=== PATIENT | male | born 1950 | race Caucasian/White ===

== ENCOUNTER → 2017-01-21 | Outpatient (CLI) | payer OTHER | LOC: MMPC 11:11 | PROVIDERS: ATTEND Surgery | DX: Z80.0 Family history of malignant neoplasm of digestive organs (principal) | CPT/HCPCS: 99212; G0463 ==

== ENCOUNTER 2017-02-10 09:47 | Day surgery (SDC) | payer OTHER ==
[~2017-02-10 09:47] MED LIST: LIDOCAINE W/ SODIUM BICARB 0.5 ML SYR ONE; Lactated Ringers 1,000 ML PRIMARY IV ONE
[2017-02-10 10:22] VITALS: RESP 16
--- NOTE | 2017-02-10 11:43 | GEN.OPNOTE ---
Colonoscopy Procedure Note Surgery Date: 02/10/17 Preoperative Diagnosis: Family history of colon cancer. Postoperative Diagnosis: Family history of colon cancer. Procedure: Complete colonoscopy and biopsy and destruction of a small polyp at the hepatic flexure. Surgeon: Wan Lopez MD Anesthesia Provider: Meenakshi Quintana CRNA Anesthesia Type: MAC Indications: Family history of colon cancer due for screening colonoscopy. Findings: Prep : [Excellent] Cecum : [Normal] Ascending : [Normal] Transverse : [Small polyp at the hepatic flexure resected with the cold biopsy forceps.] Sigmoid : [Normal] Rectum : [Normal] Digital Rectal Exam : [Normal. Slightly enlarged but nonnodular prostate.] A lubricated flexible colonoscope was inserted and passed to the blind end of the cecum. The ileocecal valve and appendiceal orifice and blind end of the cecum were all clearly seen. Air was aspirated as the scope was withdrawn. There is a small polyp at the hepatic flexure which was biopsied with the cold biopsy forceps and completely removed. Otherwise the entire colonoscopy was normal without other polyps, tumors, neoplastic masses, infectious or inflammatory process. The scope was withdrawn completing the procedure. Patient tolerated the procedure well without complication. He was taken to outpatient surgery in stable condition. Follow-up will be with my office on an as-needed basis. We will call the biopsy results when available and plan therapy and follow-up accordingly.
[2017-02-10 14:17] VITALS: TEMP 97.2
== END 2017-02-10 12:24 | disposition home or self-care (01) ==
LOC: SDSC 09:47
PROVIDERS: ATTEND Surgery
DX: Z80.0 Family history of malignant neoplasm of digestive organs (principal); K63.5 Polyp of colon; M25.551 Pain in right hip; M12.551 Traumatic arthropathy, right hip
CPT/HCPCS: 00810; 45380 ×2; 45388; 73502; 99214; G0463; J2704; J7120

== ENCOUNTER → 2017-02-10 | Outpatient (CLI) | payer OTHER ==
--- NOTE | 2017-02-10 14:37 | DI ---
AP PELVIS and RIGHT HIP, 02/10/2017 1:32 PM: Clinical History: Right hip pain. Previous Exam: None at this facility. There is no soft tissue abnormality. The bony structures of the pelvis are normal. 2 views of the rig ht hip show mild asphericity of the femoral head without a dysplastic "bump". There is no overt cover age of the acetabulum. Mild narrowing of the superior and lateral aspect of the joint space is presen t. Readin. There is mild narrowing of the superior and lateral portion of the right hip joint space. Mild as phericity of the right femoral head is also present. 2. The AP pelvis view is unremarkable.
== END ==
LOC: ORTHO 13:43
PROVIDERS: ATTEND Orthopaedic Surgery
DX: M25.551 Pain in right hip (principal)
CPT/HCPCS: 73502

== ENCOUNTER → 2017-02-11 | Outpatient (CLI) | payer OTHER ==
--- NOTE | 2017-02-13 09:53 | DI ---
MRI RIGHT HIP SCAN, 02/11/2017 12:51 PM: Clinical History: Right hip pain. Previous Exam: None at this facility. Technique: Axial fat saturated T2 weighted and oblique axial PD; coronal and sagittal PD and fat satu rated PD; anterior oblique coronal fat saturated PD. There is no soft tissue edema. A moderate to large joint effusion is present. There is increased sign al intensity in the superior and lateral aspect of the femoral head and extending inferiorly into the femoral neck and extending toward the lesser trochanter. This distribution is related to red marrow presence. Similar hyperintensities are present in the roof of the acetabulum and in the superior and inferior pubic rami. The amount of red marrow in these areas for this age group is increased and bell nversion of yellow marrow to red marrow may have occurred. Evaluation of this patient's peripheral sm ear and hemoglobin is recommended to be certain we are not dealing with anemia in this patient. In th e roof of the acetabulum, there is increased signal intensity greater than that of red marrow and thi s may represent a focus of bone edema. No definite fractures are identified. There is asphericity of the femoral head without evidence of a dysplastic "bump". The alpha angle is abnormal and is measured between 60 degrees and 68 degrees, depending on which image is used for that measurement. There is a tear that extends almost from the 12:00 position extending posteriorly into the posterior superior a nd posteroinferior quadrant and terminating near the 6:00 position. There is a section of labral tear involving the anteroinferior quadrant. The ligamentum teres has intermediate signal intensity and pr obably has a partial tear. There is thinning of the cartilaginous surfaces of the femoral head and ac etabulum but no defects are seen. Readin. Large joint effusion within an aspherical femoral head and an abnormal alpha angle of between 60- 68 degrees. There is a labral tear that extends from the 12:00 position posteriorly and inferiorly to the 6:00 position with an additional short segment tear in the anteroinferior quadrant. The cartilag inous surfaces of the femoral head and acetabulum are thin but intact. 2. Increased signal intensity is present in the femoral head and neck as well as the acetabulum and the superior and inferior pubic rami. These areas represent presence of red marrow, and at this age i t does appear to be increased and may represent reconversion of yellow marrow to red marrow. Evaluati on for anemia in this patient is recommended. 3. There is a focus of edema in the superior aspect of the acetabulum, but no fracture is identified .
== END ==
LOC: MRI 12:45
PROVIDERS: ATTEND Orthopaedic Surgery
DX: M25.551 Pain in right hip (principal); M25.451 Effusion, right hip; S73.191A Other sprain of right hip, initial encounter
CPT/HCPCS: 73721

== ENCOUNTER 2017-02-14 12:38 | Day surgery (SDC) | payer OTHER ==
[~2017-02-14 12:38] MED LIST changes: +BETAMET ACET/BETAMET NA PH 6 MG/1 ML - 5 ML ONE; +Iopamidol Inj 61% 50 ML VIAL ONE; +LIDOCAINE MPF 2% - 5 ML (20 MG/1 ML) ONE; -Lactated Ringers 1,000 ML PRIMARY IV ONE; +ROPIVACAINE HCL 7.5 MG/1 ML - 20 ML ONE
[2017-02-14 13:20] VITALS: RESP 17; TEMP 97.7
[2017-02-14 13:37] LABS: HEMATOCRIT 43.4 % (42.0-52.0); HEMOGLOBIN 15.6 g/dL (14.0-18.0); MEAN CORPUSCULAR HEMOGLOBIN 34.6 PG (27-31); MEAN CORPUSCULAR HGB CONC 35.9 g/dL (33-37); MEAN CORPUSCULAR VOLUME 96.2 FL (80-90); MEAN PLATELET VOLUME 8.9 FL (7.4-12.2); RED BLOOD COUNT 4.51 10^6/uL (4.70-6.10)
[2017-02-14 14:09] LABS: BAND NEUTROPHILS % 0 % (0-10); BASOPHILS % (MANUAL) 0 % (0-1); EOSINOPHILS % (MANUAL) 5 % (0-8); LYMPHOCYTES % (MANUAL) 39 % (10-50); METAMYELOCYTES % 0 %; MONOCYTES % (MANUAL) 1 % (0-12); MYELOCYTES % 0 %; NEUTROPHILS % (MANUAL) 55 % (50-80); PLATELET MORPHOLOGY COMMENT NORMAL MORPHOLOGY (NORM); PROMYELOCYTES % 0 %; RBC MORPHOLOGY COMMENT NORMAL MORPHOLOGY (NORM); WBC MORPHOLOGY COMMENT NORMAL MORPHOLOGY (NORM)
== END 2017-02-14 13:28 | disposition home or self-care (01) ==
LOC: SDSC 12:38
PROVIDERS: ATTEND Orthopaedic Surgery
DX: M65.88 Other synovitis and tenosynovitis, other site (principal)
CPT/HCPCS: 20610; 36415; 76000; 85007; J0702; J2001

== ENCOUNTER → 2017-04-07 | Outpatient (CLI) | payer OTHER | LOC: MMPC 11:11 | PROVIDERS: ATTEND Internal Medicine | DX: R06.83 Snoring (principal); M25.551 Pain in right hip; N52.9 Male erectile dysfunction, unspecified | CPT/HCPCS: 99214; G0463 ==

== ENCOUNTER → 2017-05-19 | Outpatient (CLI) | payer OTHER ==
--- NOTE | 2017-05-20 09:17 | DI ---
XR HIP COMPLETE MIN 2VW U/L,05/19/2017 1:36 PM: Clinical History: Right hip pain Previous Exam: February 10, 2017 Findings: 3 views of the right hip are obtained to include an AP view, and AP pelvis and a crosstable lateral v iew, and demonstrate anatomic alignment without fractures. Mild degenerative changes of the lumbar sp ine are seen. A nonobstructive bowel gas pattern is noted. There are no pathologic calcifications. Impression: Loss of joint space involving the weightbearing surface of the right hip consistent with osteoarthrit is. This is unchanged when compared with the examination from January.
== END ==
LOC: ORTHO 13:45
PROVIDERS: ATTEND Orthopaedic Surgery
DX: M25.551 Pain in right hip (principal); M16.11 Unilateral primary osteoarthritis, right hip
CPT/HCPCS: 73502

== ENCOUNTER → 2017-06-11 | Outpatient (CLI) | payer OTHER | LOC: SLEEP LAB 21:00 | PROVIDERS: ATTEND Family Medicine | DX: G47.33 Obstructive sleep apnea (adult) (pediatric) (principal); G47.34 Idiopathic sleep related nonobstructive alveolar hypoventilation | CPT/HCPCS: 95811 ==

== ENCOUNTER 2017-07-15 05:55 | Inpatient (IN) | payer OTHER ==
[2017-07-15] MEDS ORDERED: Lactated Ringers 1,000 ML PRIMARY IV ONE ×2 (06:01→11:58)
[2017-07-15] MEDS ORDERED: LIDOCAINE W/ SODIUM BICARB 0.5 ML SYR ONE (06:01)
[2017-07-15] MEDS ORDERED: ceFAZolin Inj 2gm (Premix) 50 ML IV ONE (06:01)
[2017-07-15] MEDS ORDERED: Sodium Chloride 0.9% 250 ML IV ONE (06:44)
[2017-07-15] MEDS ORDERED: ONDANSETRON 4 MG/2 ML VIAL IVP PRN ×2 (06:44→13:18)
[2017-07-15] MEDS ORDERED: Sodium Chloride 0.9% 2,000 ML ONE (06:44)
[2017-07-15] MEDS ORDERED: NORMAL SALINE 10 ML SYRINGE FLUSH IVP PRN ×2 (06:44→13:18)
[2017-07-15] MEDS ORDERED: fentaNYL Inj 100 MCG/2 ML VIAL IVP PRN (06:44)
[2017-07-15] MEDS ORDERED: ATROPINE SULFATE 0.4 MG/1 ML VIAL IVP PRN (06:44)
[2017-07-15] MEDS ORDERED: Ondansetron ODT Tab 8 MG TAB PO PRN ×2 (06:44→13:18)
[2017-07-15] MEDS ORDERED: Prochlorperazine Edisylate Inj 10mg/2ml vial IVP PRN (06:44)
[2017-07-15] MEDS ORDERED: Lactated Ringers 1,000 ML PRIMARY IV SCH (06:45)
[2017-07-15] MEDS ORDERED: Gentamicin Inj 40 MG/ML VIAL ONE (06:46)
[2017-07-15] MEDS ORDERED: HEPARIN 10,000 UNIT/1 ML ONE (06:46)
[2017-07-15] MEDS ORDERED: fentaNYL Inj 250 MCG/5 ML VIAL ONE ×2 (07:05→09:15)
[2017-07-15] MEDS ORDERED: MIDAZOLAM 5 MG/1 ML ONE (07:05)
[2017-07-15] MEDS ORDERED: KETAMINE 100 MG/1 ML - 5 ML ONE (07:05)
[2017-07-15] MEDS ORDERED: ROCURONIUM 10 MG/1 ML - 5 ML VIAL IVP ONE (07:07)
[2017-07-15] MEDS ORDERED: IPRATROPIUM/ALBUTEROL SULFATE 3 ML NEB NEB ONE (07:18)
[2017-07-15] MEDS ORDERED: IPRATROPIUM/ALBUTEROL SULFATE 3 ML NEB NEB PRN (07:28)
[2017-07-15] MEDS ORDERED: Ketorolac Inj 30 MG, Morphine Inj 5 MG, BUPivacaine Inj 0.25% PF 150 MG SPLASH ONE ×3 (07:30)
[2017-07-15] MEDS ORDERED: BUPivacaine Liposome/PF (Exparel) Inj 20ml vial INFIL ONE (07:47)
[2017-07-15] MEDS ORDERED: Sodium Chloride 0.9% vial 40 ML ONE (07:47)
[2017-07-15 07:48] LABS: BILIRUBIN,URINE NEGATIVE (NEG); CLARITY,URINE CLEAR (CLEAR); COLOR,URINE YELLOW; GLUCOSE, URINE (UA) NEGATIVE (NEG); NITRATE,URINE NEGATIVE (NEG); OCCULT BLOOD,URINE NEGATIVE (NEG); PH,URINE 5.5 (5.0-8.5); PROTEIN,URINE NEGATIVE (NEG); UROBILINOGEN,URINE 0.2 mg/dL (0.2)
[2017-07-15 07:53] LABS: RENAL EPITHELIAL CELLS,URINE RARE; URINE SAMPLE TYPE CATH SPECIMEN; WBC,URINE RARE
[2017-07-15 07:54] LABS: BACTERIA,URINE FEW
[2017-07-15] MEDS ORDERED: Sodium Chloride 0.9% 200 ML IV ONE (07:54)
[2017-07-15] MEDS ORDERED: TRANEXAMIC ACID 1,000 MG / 10 ML VIAL ONE (07:54)
[2017-07-15] MEDS ORDERED: ePHEDrine Inj 50 MG/ML AMP ONE (08:19)
[2017-07-15] MEDS ORDERED: Hetastarch 6% + NS 500 ML IV ONE (08:52)
[2017-07-15] MEDS ORDERED: Lactated Ringers 2,000 ML PRIMARY IV ONE (10:09)
[2017-07-15] MEDS ORDERED: DEXAMETHASONE PF 10 MG/1 ML VIAL ONE (10:11)
[2017-07-15] MEDS ORDERED: ONDANSETRON 4 MG/2 ML VIAL ONE (10:46)
--- NOTE | 2017-07-15 11:26 | CONSULT ---
Consult Note - Consult Reason for Consult: PostOp Consulation : Ortho (Left anterior hip) Primary Care Provider: Henri Delgadillo MD History and Physical - History of Present Illness History of Present Illness: This very nice 66-year-old gentleman who just underwent left anterior hip replacement patient is just out of surgery is awake and has no complaints Past Medical History Medical History: Elevated cholesterol, GERD Tobacco Use: Former Smoker Substance Use Type: None Medication / Allergies Home Medications: Home Medications Medication Instructions Recorded Confirmed Type Glucosa Machado 2Kcl/Chondroitin Machado 1 each PO DAILY 05/20/11 07/15/17 History [Glucosamine & Chondroitin Cap] Naproxen Sodium [Aleve] 220 mg PO Q6H PRN PRN 05/20/11 07/15/17 History Acetaminophen [Tylenol] 500 mg PO .PRN 06/10/11 07/15/17 History Tadalafil [Cialis] 1 tab PO DAILY PRN tab 03/11/14 07/15/17 History Aspirin/Acetaminophen/Caffeine 1 cap PO PRN tab 09/13/16 07/15/17 History [Excedrin Extra Strength Caplet] Pantoprazole Sodium [Protonix] 40 mg PO QD #90 tablet 12/13/16 07/15/17 Clinic Simvastatin 1 tab PO DAILY #90 tab 12/13/16 07/15/17 Clinic Ascorbic Acid [Vitamin C] 2 tab PO QD tab 02/10/17 07/15/17 History Calcium Carbonate [Calcium] 1 tab PO QD tab 02/10/17 07/15/17 History Sildenafil Citrate [Viagra] Sample #4 04/07/17 Clinic Vardenafil HCl [Levitra] Sample #4 04/07/17 Clinic Levocetirizine Dihydrochloride 5 mg PO DAILY #90 tab 04/30/17 07/15/17 Clinic [Xyzal] Sildenafil Citrate [Revatio] 1 tab PO QD PRN #30 tab 05/12/17 07/15/17 Clinic Hydrocodone/Acetaminophen 1 tab PO Q6-8H #60 tab 06/10/17 07/15/17 Clinic [Hydrocodon-Acetaminoph 7.5-325] Hydrocodone/Acetaminophen 1 - 2 tab PO Q4-6H #60 tab 07/03/17 07/15/17 Clinic [Hydrocodon-Acetaminoph 7.5-325] Promethazine HCl/Codeine 5 ml PO Q4-6HRSPRN #1 bottle 07/03/17 07/15/17 Clinic [Prometh-Codein 6.25-10 Mg/5 Ml] Allergies/Adverse Reactions: Allergies Allergy/AdvReac Type Severity Reaction Status Date / Time No Known Allergies Allergy Unverified 10/03/16 10:49 Exam - Vitals Vital Signs: Vital Signs Temperature 98.2 F Temperature Source Temporal Artery Scan Pulse Rate 58 Respiratory Rate 16 Blood Pressure 132/93 Oxygen Delivery Method Room Air Height 6 ft 1 in Weight 100.698 kg - General General Appearance: POSITIVE: No Acute Distress, Cooperative - Neck Neck Exam: POSITIVE: Normal Inspection - Respiratory Respiratory Exam: POSITIVE: Clear to Auscultation - Bilaterally, Breathing Non Labored, Normal To Percussion - Cardiovascular Cardiovascular Exam: POSITIVE: RRR, No Murmur, No Clicks - GI/Abdominal GI/Abdominal Exam: POSITIVE: Non Tender, Non Distended, Soft - Extremities Extremities Exam: POSITIVE: No Clubbing Present, No Edema Present, No Cyanosis Present Results - Labs CBC and BMP: 07/15/17 07:00 07/15/17 07:00 Labs - Last 24 Hours: Laboratory Results 07/15/17 07/15/17 Range/Units 07:00 07:40 Ur Collection Type Cath specimen Urine Color Yellow Urine Clarity Clear (CLEAR) Urine pH 5.5 (5.0-8.5) Ur Specific [place] 1.020 (1.005-1.030) Urine Protein Negative (NEG) mg/dl Urine Glucose (UA) Negative (NEG) mg/dL Urine Ketones Negative (NEG) Urine Occult Blood Negative (NEG) Urine Nitrate Negative (NEG) Urine Bilirubin Negative (NEG) Urine Urobilinogen 0.2 (0.2) mg/dL Ur Leukocyte Esterase Negative (NEG) Urine RBC 1-3 (NONE) /hpf Urine WBC Rare (NONE) Ur Squamous Epith Cells None (NONE) Ur Renal Epithelial Cell Rare (NONE) Urine Crystals None Urine Bacteria Few (NONE) Urine Casts None Urine Mucus Many (NONE) Urine Trichomonas None (NONE) Urine Yeast None (NONE) Blood Type A POSITIVE Antibody Screen Positive Antibody Identification Anti-M Assessment and Plan - Patient Problems (1) Hip replacement planned Current Visit: Yes Status: Acute Comment: Status post the first to orthopedic surgery for anticoagulation and PT OT orders check CBC CMP magnesium TSH (2) GERD (gastroesophageal reflux disease) Current Visit: Yes Status: Acute Comment: Continue PPI (3) Hypercholesteremia Current Visit: Yes Status: Acute Comment: Continue statin
[2017-07-15] MEDS: HYDROmorphone 2 MG/1 ML IVP PRN ×3 (11:33→11:52)
[2017-07-15] MEDS ORDERED: HYDROmorphone 2 MG/1 ML ONE (11:36)
[2017-07-15 11:38] LABS: BASOPHILS # (AUTO) 0.13 10*3/UL; BASOPHILS % (AUTO) 2.1 % (0-1); EOSINOPHILS # (AUTO) 0.45 10*3/UL; EOSINOPHILS % (AUTO) 7.4 % (0-8); HEMATOCRIT 39.2 % (42.0-52.0); HEMOGLOBIN 13.8 g/dL (14.0-18.0); LYMPHOCYTES # (AUTO) 1.34 10*3/uL; MEAN CORPUSCULAR HEMOGLOBIN 33.6 PG (27-31); MEAN CORPUSCULAR HGB CONC 35.2 g/dL (33-37); MEAN CORPUSCULAR VOLUME 95.4 FL (80-90); MEAN PLATELET VOLUME 9.9 FL (7.4-12.2); MONOCYTES # (AUTO) 0.68 10*3/UL (0.3-0.8); MONOCYTES % (AUTO) 11.1 % (5-15); NEUTROPHILS % (AUTO) 57.2 % (50-80); RED BLOOD COUNT 4.11 10^6/uL (4.70-6.10)
[2017-07-15 11:45] LABS: PLATELET MORPHOLOGY COMMENT NORMAL MORPHOLOGY (NORM); RBC MORPHOLOGY COMMENT NORMAL MORPHOLOGY (NORM); WBC MORPHOLOGY COMMENT NORMAL MORPHOLOGY (NORM)
[2017-07-15 11:48] LABS: BLOOD UREA NITROGEN 15 mg/dL (7-22); BUN/CREATININE RATIO 18.75 (6-20); CALCIUM 9.2 mg/dL (8.7-10.7); EST GLOMERULAR FILTRATION > 60 (>60 ml/min/1.73m(2)); MAGNESIUM 1.9 mg/dL (1.6-2.4); SERUM ALBUMIN 3.6 g/dL (3.5-4.8)
[2017-07-15] MEDS ORDERED: Sodium Chloride 0.9% 500 ML ONE (11:53)
--- NOTE | 2017-07-15 12:10 | DI ---
History: right hip osteoarthritis Findings: Intraoperative images demonstrate placement of the right hip hemiprosthesis. The femoral component is well seated. No acute fractures demonstrated Acetabular component is well seated Alignment is anatomic Impression Right hip hemiprosthesis in anatomic alignment
[2017-07-15] MEDS ORDERED: ACETAMINOPHEN 325 MG TABLET PO PRN (13:18)
[2017-07-15] MEDS ORDERED: MAG HYDROX/AL HYDROX/SIMETH 30 ML SUSP PO PRN (13:18)
[2017-07-15] MEDS ORDERED: BISACODYL 10 MG SUPPOSITORY RECTAL PRN (13:18)
[2017-07-15] MEDS ORDERED: ACETAMINOPHEN 500 MG TABLET PO SCH (13:18)
[2017-07-15] MEDS ORDERED: IBUPROFEN 400 MG TABLET PO PRN (13:18)
[2017-07-15] MEDS ORDERED: Prochlorperazine Tab 10 MG TAB PO PRN (13:18)
[2017-07-15] MEDS ORDERED: diphenhydrAMINE 25 MG CAPSULE PO PRN (13:18)
[2017-07-15] MEDS ORDERED: BISACODYL 5 MG TABLET PO PRN (13:18)
[2017-07-15] MEDS ORDERED: CALCIUM CARBONATE 500 MG (TUMS) CHEWABLE TABLET PO PRN (13:18)
[2017-07-15] MEDS ORDERED: TADALAFIL PO PRN (13:18)
[2017-07-15] MEDS ORDERED: HYDROmorphone 2 MG/1 ML IVP PRN (13:18)
--- NOTE | 2017-07-15 14:51 | ORTHO.PROG ---
Last Taken Vital Signs: Vital Signs - Last Taken Temperature 97.6 F 07/15/17 14:00 Pulse Rate 71 07/15/17 14:00 Respiratory Rate 18 07/15/17 14:00 Blood Pressure 130/66 07/15/17 14:00 Pulse Ox 96 07/15/17 14:00 Subjective: No pain and right hip after right total hip replacement Objective: Motor examination is intact as well as sensory exam dressings are in place. No significant swelling at the current time., Popliteal, adductor hiatus or thigh pain. Dressing is clean and dry and patient with good pulses brisk refill Intake and Output - 8hrs 07/14/17 07/15/17 07/15/17 07/15/17 21:59 05:59 13:59 21:59 Intake: IV 3000 300 Output: Output, Drainage Amount 35 Output, Urine Amount 150 Output, Estimated Blood 300 Loss Amount Other: Weight 100.698 kg Weight Measurement Method Standing Scale Laboratory Results 07/15/17 07/15/17 Range/Units 07:00 07:40 WBC 6.12 (4.8-10.8) 10^3/uL RBC 4.11 L (4.70-6.10) 10^6/uL Hgb 13.8 L (14.0-18.0) g/dL Hct 39.2 L (42.0-52.0) % MCV 95.4 H (80-90) FL MCH 33.6 H (27-31) PG MCHC 35.2 (33-37) g/dL RDW Std Deviation 41.8 (39-50) fL RDW Coeff of Elmer 12.3 (11.5-14.5) % Plt Count 411 H (140-350) 10*3/uL MPV 9.9 (7.4-12.2) FL Immature Gran % (Auto) 0.3 (0-5) % Neut % (Auto) 57.2 (50-80) % Lymph % (Auto) 21.9 (10-50) % [place] % (Auto) 11.1 (5-15) % Eos % (Auto) 7.4 (0-8) % Baso % (Auto) 2.1 H (0-1) % Immature Gran # (Auto) 0.02 10*3/UL Neut # (Auto) 3.50 10*3/UL Lymph # (Auto) 1.34 10*3/uL [place] # (Auto) 0.68 (0.3-0.8) 10*3/UL Eos # (Auto) 0.45 10*3/UL Baso # (Auto) 0.13 10*3/UL WBC Morphology Comment Normal morphology (NORM) Plt Morphology Comment Normal morphology (NORM) RBC Morph Comment Normal morphology (NORM) Sodium 136 (135-145) meq/L Potassium 4.3 (3.8-5.2) meq/L Chloride 107 (98-112) meq/L Carbon Dioxide 18 L (23-33) meq/L Anion Gap 11 (5-20) BUN 15 (7-22) mg/dL Creatinine 0.8 (0.70-1.50) mg/dL Estimated GFR > 60 (>60 ml/min/1.73m(2)) BUN/Creatinine Ratio 18.75 (6-20) Glucose 89 (78-110) mg/dL Calculated Osmolality 281.0 (267-292) mOsm/kg Calcium 9.2 (8.7-10.7) mg/dL Magnesium 1.9 (1.6-2.4) mg/dL Total Bilirubin 2.0 H (0.3-1.2) mg/dL AST 24 (21-57) IU/L ALT 19 L (21-72) IU/L Alkaline Phosphatase 82 (38-126) IU/L Total Protein 6.2 (6.1-8.0) g/dL Albumin 3.6 (3.5-4.8) g/dL Globulin 2.6 (2.50-4.10) g/dL Albumin/Globulin Ratio 1.30 (1.3-2.0) mg/g TSH 1.48 (0.2700-4.2000) uIU/mL Ur Collection Type Cath specimen Urine Color Yellow Urine Clarity Clear (CLEAR) Urine pH 5.5 (5.0-8.5) Ur Specific [place] 1.020 (1.005-1.030) Urine Protein Negative (NEG) mg/dl Urine Glucose (UA) Negative (NEG) mg/dL Urine Ketones Negative (NEG) Urine Occult Blood Negative (NEG) Urine Nitrate Negative (NEG) Urine Bilirubin Negative (NEG) Urine Urobilinogen 0.2 (0.2) mg/dL Ur Leukocyte Esterase Negative (NEG) Urine RBC 1-3 (NONE) /hpf Urine WBC Rare (NONE) Ur Squamous Epith Cells None (NONE) Ur Renal Epithelial Cell Rare (NONE) Urine Crystals None Urine Bacteria Few (NONE) Urine Casts None Urine Mucus Many (NONE) Urine Trichomonas None (NONE) Urine Yeast None (NONE) Blood Type A POSITIVE Antibody Screen Positive Antibody Identification Anti-M Assessment: Right anterior total hip replacement doing well Plan: Mobilize with physical therapy Pain control DVT prophylaxis with aspirin and pneumatics
--- NOTE | 2017-07-15 16:09 | DI ---
History postop right hip prosthesis No previous postoperative films available for comparison. Findings: Images demonstrate a right hip prosthesis. Femoral component is well seated. Acetabular component well seated. Alignment is anatomic. Impression Right hip prosthesis
[2017-07-15] MEDS: ceFAZolin Inj 2gm (Premix) 2 GM in Dextrose 1 BAG IV SCH (16:21)
[2017-07-15] MEDS ORDERED: Prometh/Codeine Liquid 10/6.25 MG/5 ML ORAL.SYRIN PO PRN (19:19)
[2017-07-15] MEDS: DOCUSATE 100 MG CAPSULE PO SCH (21:11)
[2017-07-15] MEDS: Simvastatin Tab 10 MG TAB PO SCH (21:30)
[2017-07-16] MEDS: ceFAZolin Inj 2gm (Premix) 2 GM in Dextrose 1 BAG IV SCH (00:47)
[2017-07-16 04:41] LABS: HEMATOCRIT 32.2 % (42.0-52.0); HEMOGLOBIN 11.2 g/dL (14.0-18.0); MEAN CORPUSCULAR HEMOGLOBIN 33.3 PG (27-31); MEAN CORPUSCULAR HGB CONC 34.8 g/dL (33-37); MEAN CORPUSCULAR VOLUME 95.8 FL (80-90); MEAN PLATELET VOLUME 9.4 FL (7.4-12.2); RED BLOOD COUNT 3.36 10^6/uL (4.70-6.10)
[2017-07-16 04:57] LABS: BLOOD UREA NITROGEN 12 mg/dL (7-22); BUN/CREATININE RATIO 17.14 (6-20); CALCIUM 8.7 mg/dL (8.7-10.7); EST GLOMERULAR FILTRATION > 60 (>60 ml/min/1.73m(2))
[2017-07-16] MEDS: Lactated Ringers 1,000 ML PRIMARY IV SCH (06:42)
--- NOTE | 2017-07-16 08:03 | ORTHO.PROG ---
Last Taken Vital Signs: Vital Signs - Last Taken Temperature 98.8 F 07/16/17 04:44 Pulse Rate 73 07/16/17 07:00 Respiratory Rate 20 07/16/17 04:44 Blood Pressure 137/70 07/16/17 04:44 Pulse Ox 96 07/16/17 04:44 Subjective: Patient notes to be doing well he notes it at a little bit of a bite a couple steps when going to the bathroom this morning otherwise is doing well. Objective: The leg is supple the dressing is in place with appropriate suction. The drain this morning with no fluid in it over the last 2 hours and had decreased previously when empty to 2 AM. Sensory exam is intact motor examination is intact Intake and Output - 8hrs 07/15/17 07/15/17 07/16/17 07/16/17 13:59 21:59 05:59 13:59 Intake: IV 3000 618 1000 Intake Oral Amount 600 800 Output: Output, Drainage Amount 35 140 120 Right Hip 140 120 Output, Urinary Catheter 250 1750 Amount Output, Urine Amount 150 Output, Estimated Blood 300 Loss Amount Other: Percent Meal Consumed 100% Weight 100.698 kg 102.965 kg Weight Measurement Method Standing Scale Standing Scale Abnormal Lab Results (Last 24 Hours) Range/Units 07/15/17 07/16/17 07:00 04:23 WBC (4.8-10.8) 10^3/uL 13.51 H RBC (4.70-6.10) 10^6/uL 4.11 L 3.36 L Hgb (14.0-18.0) g/dL 13.8 L 11.2 L Hct (42.0-52.0) % 39.2 L 32.2 L MCV (80-90) FL 95.4 H 95.8 H MCH (27-31) PG 33.6 H 33.3 H Plt Count (140-350) 10*3/uL 411 H Baso % (Auto) (0-1) % 2.1 H Sodium (135-145) meq/L 134 L Carbon Dioxide (23-33) meq/L 18 L Glucose (78-110) mg/dL 111 H Total Bilirubin (0.3-1.2) mg/dL 2.0 H ALT (21-72) IU/L 19 L Laboratory Results 07/15/17 07/15/17 07/16/17 Range/Units 07:00 07:40 04:23 WBC 6.12 13.51 H (4.8-10.8) 10^3/uL RBC 4.11 L 3.36 L (4.70-6.10) 10^6/uL Hgb 13.8 L 11.2 L (14.0-18.0) g/dL Hct 39.2 L 32.2 L (42.0-52.0) % MCV 95.4 H 95.8 H (80-90) FL MCH 33.6 H 33.3 H (27-31) PG MCHC 35.2 34.8 (33-37) g/dL RDW Std Deviation 41.8 40.5 (39-50) fL RDW Coeff of Elmer 12.3 12.0 (11.5-14.5) % Plt Count 411 H 315 (140-350) 10*3/uL MPV 9.9 9.4 (7.4-12.2) FL Immature Gran % (Auto) 0.3 (0-5) % Neut % (Auto) 57.2 (50-80) % Lymph % (Auto) 21.9 (10-50) % [place] % (Auto) 11.1 (5-15) % Eos % (Auto) 7.4 (0-8) % Baso % (Auto) 2.1 H (0-1) % Immature Gran # (Auto) 0.02 10*3/UL Neut # (Auto) 3.50 10*3/UL Lymph # (Auto) 1.34 10*3/uL [place] # (Auto) 0.68 (0.3-0.8) 10*3/UL Eos # (Auto) 0.45 10*3/UL Baso # (Auto) 0.13 10*3/UL WBC Morphology Comment Normal morphology (NORM) Plt Morphology Comment Normal morphology (NORM) RBC Morph Comment Normal morphology (NORM) Sodium 136 134 L (135-145) meq/L Potassium 4.3 4.1 (3.8-5.2) meq/L Chloride 107 106 (98-112) meq/L Carbon Dioxide 18 L 23 (23-33) meq/L Anion Gap 11 5 (5-20) BUN 15 12 (7-22) mg/dL Creatinine 0.8 0.7 (0.70-1.50) mg/dL Estimated GFR > 60 > 60 (>60 ml/min/1.73m(2)) BUN/Creatinine Ratio 18.75 17.14 (6-20) Glucose 89 111 H (78-110) mg/dL Calculated Osmolality 281.0 278.0 (267-292) mOsm/kg Calcium 9.2 8.7 (8.7-10.7) mg/dL Magnesium 1.9 (1.6-2.4) mg/dL Total Bilirubin 2.0 H (0.3-1.2) mg/dL AST 24 (21-57) IU/L ALT 19 L (21-72) IU/L Alkaline Phosphatase 82 (38-126) IU/L Total Protein 6.2 (6.1-8.0) g/dL Albumin 3.6 (3.5-4.8) g/dL Globulin 2.6 (2.50-4.10) g/dL Albumin/Globulin Ratio 1.30 (1.3-2.0) mg/g TSH 1.48 (0.2700-4.2000) uIU/mL Ur Collection Type Cath specimen Urine Color Yellow Urine Clarity Clear (CLEAR) Urine pH 5.5 (5.0-8.5) Ur Specific [place] 1.020 (1.005-1.030) Urine Protein Negative (NEG) mg/dl Urine Glucose (UA) Negative (NEG) mg/dL Urine Ketones Negative (NEG) Urine Occult Blood Negative (NEG) Urine Nitrate Negative (NEG) Urine Bilirubin Negative (NEG) Urine Urobilinogen 0.2 (0.2) mg/dL Ur Leukocyte Esterase Negative (NEG) Urine RBC 1-3 (NONE) /hpf Urine WBC Rare (NONE) Ur Squamous Epith Cells None (NONE) Ur Renal Epithelial Cell Rare (NONE) Urine Crystals None Urine Bacteria Few (NONE) Urine Casts None Urine Mucus Many (NONE) Urine Trichomonas None (NONE) Urine Yeast None (NONE) Blood Type A POSITIVE Antibody Screen Positive Antibody Identification Anti-M Vital Signs (24 hrs) Temp Pulse Pulse Resp BP Pulse Ox 07/16/17 07:00 73 07/16/17 04:44 98.8 F 67 20 137/70 96 07/16/17 00:47 98.5 F 85 20 111/65 95 07/15/17 20:50 98.1 F 98 20 113/68 95 07/15/17 16:13 97.8 F 84 18 144/79 96 07/15/17 16:00 96 07/15/17 15:24 97.2 F 70 17 132/61 98 07/15/17 14:00 97.6 F 71 18 130/66 96 07/15/17 13:30 96.8 F 67 18 137/68 97 07/15/17 13:20 97.6 F 79 79 17 139/66 95 07/15/17 13:15 97.6 F 68 17 150/82 97 Assessment: Right anterior total hip replacement doing well Plan: Continue icing the hip region. Mobilize with physical therapy and occupational therapy. Pain control with oral and IV medication as needed. Discontinue Santiago catheter.
[2017-07-16] MEDS ORDERED: [UNRECOGNIZED DRUG - OTHER] PO SCH (09:00)
--- NOTE | 2017-07-16 09:05 | CRNA.PROGR ---
Anesthesia Note Anesthesia Progress Note: Sitting up in chair at bedside eating breakfast. He states he's comfortable. No nausea. Santiago still in. His color and affect are bright. He and his and daughter are cheerful. Labs are good. No apparent anesthetic difficulties. Laboratory Results 07/15/17 07/15/17 07/16/17 Range/Units 07:00 07:40 04:23 WBC 6.12 13.51 H (4.8-10.8) 10^3/uL RBC 4.11 L 3.36 L (4.70-6.10) 10^6/uL Hgb 13.8 L 11.2 L (14.0-18.0) g/dL Hct 39.2 L 32.2 L (42.0-52.0) % MCV 95.4 H 95.8 H (80-90) FL MCH 33.6 H 33.3 H (27-31) PG MCHC 35.2 34.8 (33-37) g/dL RDW Std Deviation 41.8 40.5 (39-50) fL RDW Coeff of Elmer 12.3 12.0 (11.5-14.5) % Plt Count 411 H 315 (140-350) 10*3/uL MPV 9.9 9.4 (7.4-12.2) FL Immature Gran % (Auto) 0.3 (0-5) % Neut % (Auto) 57.2 (50-80) % Lymph % (Auto) 21.9 (10-50) % [place] % (Auto) 11.1 (5-15) % Eos % (Auto) 7.4 (0-8) % Baso % (Auto) 2.1 H (0-1) % Immature Gran # (Auto) 0.02 10*3/UL Neut # (Auto) 3.50 10*3/UL Lymph # (Auto) 1.34 10*3/uL [place] # (Auto) 0.68 (0.3-0.8) 10*3/UL Eos # (Auto) 0.45 10*3/UL Baso # (Auto) 0.13 10*3/UL WBC Morphology Comment Normal morphology (NORM) Plt Morphology Comment Normal morphology (NORM) RBC Morph Comment Normal morphology (NORM) Sodium 136 134 L (135-145) meq/L Potassium 4.3 4.1 (3.8-5.2) meq/L Chloride 107 106 (98-112) meq/L Carbon Dioxide 18 L 23 (23-33) meq/L Anion Gap 11 5 (5-20) BUN 15 12 (7-22) mg/dL Creatinine 0.8 0.7 (0.70-1.50) mg/dL Estimated GFR > 60 > 60 (>60 ml/min/1.73m(2)) BUN/Creatinine Ratio 18.75 17.14 (6-20) Glucose 89 111 H (78-110) mg/dL Calculated Osmolality 281.0 278.0 (267-292) mOsm/kg Calcium 9.2 8.7 (8.7-10.7) mg/dL Magnesium 1.9 (1.6-2.4) mg/dL Total Bilirubin 2.0 H (0.3-1.2) mg/dL AST 24 (21-57) IU/L ALT 19 L (21-72) IU/L Alkaline Phosphatase 82 (38-126) IU/L Total Protein 6.2 (6.1-8.0) g/dL Albumin 3.6 (3.5-4.8) g/dL Globulin 2.6 (2.50-4.10) g/dL Albumin/Globulin Ratio 1.30 (1.3-2.0) mg/g TSH 1.48 (0.2700-4.2000) uIU/mL Ur Collection Type Cath specimen Urine Color Yellow Urine Clarity Clear (CLEAR) Urine pH 5.5 (5.0-8.5) Ur Specific [place] 1.020 (1.005-1.030) Urine Protein Negative (NEG) mg/dl Urine Glucose (UA) Negative (NEG) mg/dL Urine Ketones Negative (NEG) Urine Occult Blood Negative (NEG) Urine Nitrate Negative (NEG) Urine Bilirubin Negative (NEG) Urine Urobilinogen 0.2 (0.2) mg/dL Ur Leukocyte Esterase Negative (NEG) Urine RBC 1-3 (NONE) /hpf Urine WBC Rare (NONE) Ur Squamous Epith Cells None (NONE) Ur Renal Epithelial Cell Rare (NONE) Urine Crystals None Urine Bacteria Few (NONE) Urine Casts None Urine Mucus Many (NONE) Urine Trichomonas None (NONE) Urine Yeast None (NONE) Blood Type A POSITIVE Antibody Screen Positive Antibody Identification Anti-M L. Mariano MS, [employer]
[2017-07-16] MEDS: PANTOPRAZOLE 40 MG TABLET PO SCH (09:27)
[2017-07-16] MEDS: LORATADINE 10 MG TABLET PO SCH (09:27)
[2017-07-16] MEDS: ASCORBIC ACID 500 MG TABLET PO SCH (09:27)
[2017-07-16] MEDS: CALCIUM CARBONATE 500 MG (TUMS) CHEWABLE TABLET PO SCH (09:27)
[2017-07-16] MEDS: DOCUSATE 100 MG CAPSULE PO SCH ×2 (09:27→21:30)
[2017-07-16] MEDS: ASPIRIN 325 MG EC TABLET PO SCH ×2 (09:28→21:30)
[2017-07-16] MEDS: HYDROcodone-APAP 7.5 MG-325 MG TABLET PO PRN ×2 (09:34→14:33)
--- NOTE | 2017-07-16 11:20 | PT.PROG ---
Progress Note Progress Note: S. Patient states that he is feeling good except when he tries to move too fast. then he has pain. His requested to do stair training while she was here this morning. He reported he feels good to be up and moving. O. Patient ambulated 175 feet to the therapy gym where he had heat and performed exercises in the form of; heel slides, quad sets, 4 way ankle (red), short arc quads, seated long arc quads, sit to stands all x 10, minute drills ( 2x1 minute). Patient ascended and descended 3 stairs with walker, then ambulated 175 feet back to his room where he was left in his chair with alarm and call light. A. Patient tolerated exercises well today, he was able to perform stair training fair, he required frequent verbal cues to remember how to perform tasks slowly and to follow hip protocols. Patient would continue to benefit from skilled therapy to increase strength and mobility at this time. P. Continue POC.
--- NOTE | 2017-07-16 11:21 | PDOC(PROG) ---
Interval History: Patient is doing great and has no complaints completed physical therapy Objective : Data - Labs CBC and BMP: 07/16/17 04:23 07/16/17 04:23 Labs - Last 24 Hours: Laboratory Results 07/15/17 07/16/17 Range/Units 07:00 04:23 WBC 6.12 13.51 H (4.8-10.8) 10^3/uL RBC 4.11 L 3.36 L (4.70-6.10) 10^6/uL Hgb 13.8 L 11.2 L (14.0-18.0) g/dL Hct 39.2 L 32.2 L (42.0-52.0) % MCV 95.4 H 95.8 H (80-90) FL MCH 33.6 H 33.3 H (27-31) PG MCHC 35.2 34.8 (33-37) g/dL RDW Std Deviation 41.8 40.5 (39-50) fL RDW Coeff of Elmer 12.3 12.0 (11.5-14.5) % Plt Count 411 H 315 (140-350) 10*3/uL MPV 9.9 9.4 (7.4-12.2) FL Immature Gran % (Auto) 0.3 (0-5) % Neut % (Auto) 57.2 (50-80) % Lymph % (Auto) 21.9 (10-50) % [place] % (Auto) 11.1 (5-15) % Eos % (Auto) 7.4 (0-8) % Baso % (Auto) 2.1 H (0-1) % Immature Gran # (Auto) 0.02 10*3/UL Neut # (Auto) 3.50 10*3/UL Lymph # (Auto) 1.34 10*3/uL [place] # (Auto) 0.68 (0.3-0.8) 10*3/UL Eos # (Auto) 0.45 10*3/UL Baso # (Auto) 0.13 10*3/UL WBC Morphology Comment Normal morphology (NORM) Plt Morphology Comment Normal morphology (NORM) RBC Morph Comment Normal morphology (NORM) Sodium 136 134 L (135-145) meq/L Potassium 4.3 4.1 (3.8-5.2) meq/L Chloride 107 106 (98-112) meq/L Carbon Dioxide 18 L 23 (23-33) meq/L Anion Gap 11 5 (5-20) BUN 15 12 (7-22) mg/dL Creatinine 0.8 0.7 (0.70-1.50) mg/dL Estimated GFR > 60 > 60 (>60 ml/min/1.73m(2)) BUN/Creatinine Ratio 18.75 17.14 (6-20) Glucose 89 111 H (78-110) mg/dL Calculated Osmolality 281.0 278.0 (267-292) mOsm/kg Calcium 9.2 8.7 (8.7-10.7) mg/dL Magnesium 1.9 (1.6-2.4) mg/dL Total Bilirubin 2.0 H (0.3-1.2) mg/dL AST 24 (21-57) IU/L ALT 19 L (21-72) IU/L Alkaline Phosphatase 82 (38-126) IU/L Total Protein 6.2 (6.1-8.0) g/dL Albumin 3.6 (3.5-4.8) g/dL Globulin 2.6 (2.50-4.10) g/dL Albumin/Globulin Ratio 1.30 (1.3-2.0) mg/g TSH 1.48 (0.2700-4.2000) uIU/mL Objective : Exam - General General Appearance: Cooperative - Respiratory Respiratory Exam: Clear to Auscultation - Bilaterally, Breathing Non Labored - Cardiovascular Cardiovascular Exam: RRR, No Murmur - GI/Abdominal GI/Abdominal Exam: Non Tender, Non Distended Assessment and Plan - Patient Problems (1) Hip replacement planned Current Visit: Yes Status: Acute Comment: Doing well did physical therapy defer to PT OT and Dr. Stewart for when ready to discharge (2) GERD (gastroesophageal reflux disease) Current Visit: Yes Status: Chronic (3) Hypercholesteremia Current Visit: Yes Status: Chronic
--- NOTE | 2017-07-16 15:23 | PTI REPORT ---
Thank you for the referral of Boom De Souza. He was seen on 07/15/17 for an inpatient evaluation status post right total hip arthroplasty with an anterior approach. SUBJECTIVE: The patient is a 66-year-old male. The patient reports even though he just had surgery he is having less pain now than he has in the past two months and is eager to get up. PAST MEDICAL HISTORY: Past medical history can be found in the patient's medical record. OBJECTIVE FINDINGS: Pain: The patient reports a pain level of 1/10 on the verbal analog scale (0=no pain, 10=worst pain); however, the patient just had surgery and still has the effects of his operative anesthesia. Bed mobility: The patient was able to perform bed mobility with verbal cues from supine to edge of bed and edge of bed to supine. Standing: The patient tolerated weight-bearing as tolerated standing within a walker with gait belt and contact to stand by assistance x12 minutes. Ambulation: The patient did take small steps forward and backward, approximately 8 steps, but was limited due to his catheter, his IV, his oxygen, and his drain tube. Incision: The patient's incision was unable to be inspected due to his post surgical bandage. Edema: The patient has Grade II edema throughout the right lower extremity. Strength/Range of motion: Strength and range of motion were not formally tested due to surgical precautions. ASSESSMENT: Problem List: Pain in the right hip Decreased passive and active range of motion in the right hip Decreased strength in the right hip Short-Term Goals: To be met by discharge from inpatient: Patient will be able to transfer from bed to stand independently. Patient will be able to ambulate approximately 100 feet with walker, weight- bearing as tolerated. Patient will be able to ascend and descend five stairs using walker, weight- bearing as tolerated. Long-Term Goals: To be met following discharge from inpatient: Patient will be seen by outpatient physical therapy. TREATMENT PLAN: Patient will be seen B.I.D during the week and one time per day over the weekend as an inpatient to address the above goals and objectives. INITIAL TREATMENT: Treatment today consisted of the initial evaluation followed by issuing the patient a walker. The patient performed bed mobility from supine to edge of bed with verbal cues only. The patient stood for approximately 12 minutes with weight-bearing as tolerated on that right lower extremity and took approximately eight steps within his walker forward and backward and side to side. The patient was transferred back into bed with bed alarm on and call light in place. ORALIA
--- NOTE | 2017-07-16 16:01 | OTI REPORT ---
Thank you for the referral of Boom De Souza. He was seen on 07/16/17 for an occupational therapy inpatient evaluation status post right anterior total hip arthroplasty. SUBJECTIVE: The patient is a 66-year-old male. The patient reports he lives in [place] with his . The patient's home includes three steps to the entrance with two handrails. He also has a basement within the house; however, he will only use the first floor for the first couple of weeks post surgery. The patient is currently driving. Yonas in the house includes carpet and hardwood yonas. The bathroom set up includes a walk in shower with a built in shower chair. The patient has a raised toilet seat with handles available at home. The patient sleeps in a standard bed. iADLs including laundry, cooking, cleaning, and groceries are completed by . 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 The patient reports that he utilized a cane before surgery to help get around. Prior to surgery the patient reports his pain level was at a steady 5/10 on the verbal analog scale ( 0=no pain, 10=worst pain) and he reports it would get up to 9.5 with certain movements. PAST MEDICAL HISTORY: Past medical history can be found in the patient's medical record. OBJECTIVE FINDINGS: Pain: Currently the patient reports a pain level of 1/10 on the verbal analog scale (0=no pain, 10=worst pain). He states his pain does jump up to 4-5/10 with movement. Range of motion: Upper extremity range of motion bilaterally is within normal limits. Strength: Upper extremity strength is 4+/5 bilaterally for the shoulders, elbows , wrists, and hands. Ambulation: The patient utilized a front wheeled walker during initial evaluation. Activities of daily living: The patient demonstrated ability to dress lower extremities including underwear and pants with modified independence with the use of a new car get ready mechanic and mod verbal cues during training session. The patient also demonstrated the ability to doff socks with new car get ready mechanic and don socks including placing the sock on the sock aide with mod verbal cues and min assist. The patient donned ice puller t-shirt with set up assistance from . ASSESSMENT: Problem List: Patient will need to follow anterior hip precautions Increased pain Limitations with lower extremity dressing Short-Term Goals: To be met by discharge from inpatient: Patient will be able to complete lower extremity dressing with modified independence with the use of adaptive equipment as needed. Patient will verbalize and follow all hip precautions. Long-Term Goals: To be met following discharge from inpatient: Patient will return home safely with adaptive equipment to complete all ADLs. TREATMENT PLAN: Patient will be seen for once a day in the am as an inpatient to address the above goals and objectives. INITIAL TREATMENT: Treatment today consisted of the initial evaluation followed by the patient performing sit to stand transfer from [facility] with stand by assistance for safety. The patient was educated in anterior hip post operative precautions, upper extremity dressing, lower extremity dressing, training with adaptive equipment including the new car get ready mechanic and sock aide. The patient was also issued a sock aide and a new car get ready mechanic. There are no other equipment recommendations at this time as the patient has a raised toilet seat with handles and a built in shower chair at home. ORALIA
--- NOTE | 2017-07-16 17:04 | PT.PROG ---
Progress Note Progress Note: S. Patient stated that he is sore this afternoon. However feels better when he is up moving. O. Patient ambulated 175 feet to the therapy gym where he had heat and performed supine exercises in the form of; heel slides, quad sets, 4 way ankle ( red), short arc quads, seated long arc quads,heel toe raises, sit to stands all x 10, box step ups (#3 box) x 10. Patient ambulated 175 feet back to his room where he was left in bed with alarm and call light. A. Patient tolerated exercise well this afternoon, patient continues to struggle with pain and weakness. Patient ambulated with SBG assist. He would continue to benefit from skilled therapy to increase strength and mobility. P. Continue POC.
[2017-07-16] MEDS: Simvastatin Tab 10 MG TAB PO SCH (21:30)
[2017-07-17 04:52] LABS: HEMATOCRIT 34.8 % (42.0-52.0); MEAN CORPUSCULAR HEMOGLOBIN 33.3 PG (27-31); MEAN CORPUSCULAR HGB CONC 34.5 g/dL (33-37); MEAN CORPUSCULAR VOLUME 96.7 FL (80-90); RED BLOOD COUNT 3.6 10^6/uL (4.70-6.10)
[2017-07-17 05:03] LABS: BLOOD UREA NITROGEN 13 mg/dL (7-22); BUN/CREATININE RATIO 16.25 (6-20); CALCIUM 8.9 mg/dL (8.7-10.7); EST GLOMERULAR FILTRATION > 60 (>60 ml/min/1.73m(2))
[2017-07-17] MEDS: PANTOPRAZOLE 40 MG TABLET PO SCH (08:00)
[2017-07-17] MEDS: CALCIUM CARBONATE 500 MG (TUMS) CHEWABLE TABLET PO SCH (08:15)
[2017-07-17] MEDS: ASCORBIC ACID 500 MG TABLET PO SCH (08:16)
[2017-07-17] MEDS: LORATADINE 10 MG TABLET PO SCH (08:16)
[2017-07-17] MEDS: ASPIRIN 325 MG EC TABLET PO SCH (08:16)
[2017-07-17] MEDS: DOCUSATE 100 MG CAPSULE PO SCH (08:17)
[2017-07-17] MEDS: HYDROcodone-APAP 7.5 MG-325 MG TABLET PO PRN (08:37)
--- NOTE | 2017-07-17 09:14 | OT.PROG ---
Progress Note Progress Note: Pt reports pain of 1/10 today and reports he is going home this afternoon. per Pt reported ability to perform all ADLs including dressing and toileting with adaptive equipment as needed. Pt was educated in post-operative hip precautions. Pt will be discharged from OT services due to meeting all goals. DINORA Keller/Sathya
--- NOTE | 2017-07-17 10:24 | PT.PROG ---
Progress Note Progress Note: S. Patient stated that he is feeling good today, he reports that he is a little sore when he first gets up however feels better once he starts moving. O. Patient ambulated 175 feet to the therapy gym where he had heat and performed exercises in the form of; heel slides, quad sets, 4 way ankle (red), short arc quads, seated long arc quads, sit to stands all x 15 bilaterally. Minute drills 3x1 minute. Patient ambulated 175 feet back to his room where he was left in his chair with alarm and call light. A. patient tolerated therapy well this morning, he continues to have some soreness and stiffness however is making gains with mobility and strength, Patient has met all goals at this time. P. continue POC until discharge.
--- NOTE | 2017-07-17 10:32 | DCSUMMARY ---
Hospitalization Summary Hospital Course: Final Discharge Diagnosis: Current Visit Problems Problem Status Priority Diagnosed Code Hip replacement planned Acute [id number] GERD (gastroesophageal reflux disease) Chronic K21.9 Hypercholesteremia Chronic E78.00 Diagnostic Data, Laboratory Data, and Procedures of Signifigance: Laboratory Results 07/15/17 07/15/17 07/16/17 Range/Units 07:00 07:40 04:23 WBC 6.12 13.51 H (4.8-10.8) 10^3/uL RBC 4.11 L 3.36 L (4.70-6.10) 10^6/uL Hgb 13.8 L 11.2 L (14.0-18.0) g/dL Hct 39.2 L 32.2 L (42.0-52.0) % MCV 95.4 H 95.8 H (80-90) FL MCH 33.6 H 33.3 H (27-31) PG MCHC 35.2 34.8 (33-37) g/dL RDW Std Deviation 41.8 40.5 (39-50) fL RDW Coeff of Elmer 12.3 12.0 (11.5-14.5) % Plt Count 411 H 315 (140-350) 10*3/uL MPV 9.9 9.4 (7.4-12.2) FL Immature Gran % (Auto) 0.3 (0-5) % Neut % (Auto) 57.2 (50-80) % Lymph % (Auto) 21.9 (10-50) % Harper % (Auto) 11.1 (5-15) % Eos % (Auto) 7.4 (0-8) % Baso % (Auto) 2.1 H (0-1) % Immature Gran # (Auto) 0.02 10*3/UL Neut # (Auto) 3.50 10*3/UL Lymph # (Auto) 1.34 10*3/uL Harper # (Auto) 0.68 (0.3-0.8) 10*3/UL Eos # (Auto) 0.45 10*3/UL Baso # (Auto) 0.13 10*3/UL WBC Morphology Comment Normal morphology (NORM) Plt Morphology Comment Normal morphology (NORM) RBC Morph Comment Normal morphology (NORM) Sodium 136 134 L (135-145) meq/L Potassium 4.3 4.1 (3.8-5.2) meq/L Chloride 107 106 (98-112) meq/L Carbon Dioxide 18 L 23 (23-33) meq/L Anion Gap 11 5 (5-20) BUN 15 12 (7-22) mg/dL Creatinine 0.8 0.7 (0.70-1.50) mg/dL Estimated GFR > 60 > 60 (>60 ml/min/1.73m(2)) BUN/Creatinine Ratio 18.75 17.14 (6-20) Glucose 89 111 H (78-110) mg/dL Calculated Osmolality 281.0 278.0 (267-292) mOsm/kg Calcium 9.2 8.7 (8.7-10.7) mg/dL Magnesium 1.9 (1.6-2.4) mg/dL Total Bilirubin 2.0 H (0.3-1.2) mg/dL AST 24 (21-57) IU/L ALT 19 L (21-72) IU/L Alkaline Phosphatase 82 (38-126) IU/L Total Protein 6.2 (6.1-8.0) g/dL Albumin 3.6 (3.5-4.8) g/dL Globulin 2.6 (2.50-4.10) g/dL Albumin/Globulin Ratio 1.30 (1.3-2.0) mg/g TSH 1.48 (0.2700-4.2000) uIU/mL Ur Collection Type Cath specimen Urine Color Yellow Urine Clarity Clear (CLEAR) Urine pH 5.5 (5.0-8.5) Ur Specific [place]ows 1.020 (1.005-1.030) Urine Protein Negative (NEG) mg/dl Urine Glucose (UA) Negative (NEG) mg/dL Urine Ketones Negative (NEG) Urine Occult Blood Negative (NEG) Urine Nitrate Negative (NEG) Urine Bilirubin Negative (NEG) Urine Urobilinogen 0.2 (0.2) mg/dL Ur Leukocyte Esterase Negative (NEG) Urine RBC 1-3 (NONE) /hpf Urine WBC Rare (NONE) Ur Squamous Epith Cells None (NONE) Ur Renal Epithelial Cell Rare (NONE) Urine Crystals None Urine Bacteria Few (NONE) Urine Casts None Urine Mucus Many (NONE) Urine Trichomonas None (NONE) Urine Yeast None (NONE) Blood Type A POSITIVE Antibody Screen Positive Antibody Identification Anti-M 08/17/17 Range/Units 04:10 WBC 10.47 (4.8-10.8) 10^3/uL RBC 3.60 L (4.70-6.10) 10^6/uL Hgb 12.0 L (14.0-18.0) g/dL Hct 34.8 L (42.0-52.0) % MCV 96.7 H (80-90) FL MCH 33.3 H (27-31) PG MCHC 34.5 (33-37) g/dL RDW Std Deviation 43.2 (39-50) fL RDW Coeff of Elmer 12.7 (11.5-14.5) % Plt Count 313 (140-350) 10*3/uL MPV 10.0 (7.4-12.2) FL Immature Gran % (Auto) (0-5) % Neut % (Auto) (50-80) % Lymph % (Auto) (10-50) % Harper % (Auto) (5-15) % Eos % (Auto) (0-8) % Baso % (Auto) (0-1) % Immature Gran # (Auto) 10*3/UL Neut # (Auto) 10*3/UL Lymph # (Auto) 10*3/uL Harper # (Auto) (0.3-0.8) 10*3/UL Eos # (Auto) 10*3/UL Baso # (Auto) 10*3/UL WBC Morphology Comment (NORM) Plt Morphology Comment (NORM) RBC Morph Comment (NORM) Sodium 136 (135-145) meq/L Potassium 3.8 (3.8-5.2) meq/L Chloride 105 (98-112) meq/L Carbon Dioxide 24 (23-33) meq/L Anion Gap 7 (5-20) BUN 13 (7-22) mg/dL Creatinine 0.8 (0.70-1.50) mg/dL Estimated GFR > 60 (>60 ml/min/1.73m(2)) BUN/Creatinine Ratio 16.25 (6-20) Glucose 97 (78-110) mg/dL Calculated Osmolality 281.0 (267-292) mOsm/kg Calcium 8.9 (8.7-10.7) mg/dL Magnesium (1.6-2.4) mg/dL Total Bilirubin (0.3-1.2) mg/dL AST (21-57) IU/L ALT (21-72) IU/L Alkaline Phosphatase (38-126) IU/L Total Protein (6.1-8.0) g/dL Albumin (3.5-4.8) g/dL Globulin (2.50-4.10) g/dL Albumin/Globulin Ratio (1.3-2.0) mg/g TSH (0.2700-4.2000) uIU/mL Ur Collection Type Urine Color Urine Clarity (CLEAR) Urine pH (5.0-8.5) Ur Specific [place] (1.005-1.030) Urine Protein (NEG) mg/dl Urine Glucose (UA) (NEG) mg/dL Urine Ketones (NEG) Urine Occult Blood (NEG) Urine Nitrate (NEG) Urine Bilirubin (NEG) Urine Urobilinogen (0.2) mg/dL Ur Leukocyte Esterase (NEG) Urine RBC (NONE) /hpf Urine WBC (NONE) Ur Squamous Epith Cells (NONE) Ur Renal Epithelial Cell (NONE) Urine Crystals Urine Bacteria (NONE) Urine Casts Urine Mucus (NONE) Urine Trichomonas (NONE) Urine Yeast (NONE) Blood Type Antibody Screen Antibody Identification History and Physical pertinent to Admission: Course of Hospitalization: This very nice 66-year-old gentleman who had severe arthritis of his right hip to the point where he cannot even drive his pickup comes in for a planned right total anterior hip replacement performed by Dr. Stewart please see his note for details. Hospitalist services were consult did for GERD. According to PT and OT notes patient has met his goals and is ready to be discharged. Pain control and anticoagulation will be deferred to Dr. Stewart orthopedic surgery. Follow-up is ready been made with the orthopedic surgery and the patient will be discharged in stable and improved condition if okay with Dr. Stewart On the date of discharge, the patient was examined: Gen.: No acute distress, alert, nontoxic Heart: Regular rate and rhythm, no murmurs, clicks, gallops, or rubs Lungs: Clear to auscultation bilaterally, breathing is nonlabored Abdomen/GI: Normal tones on auscultation, soft, nontender, nondistended Musculoskeletal/extremities: No clubbing, cyanosis, or edema Vitals reviewed and are listed below Assessment and Plan: 1. As per discharge assessments above 2. Disposition: Home continue PT OT as indicated by Dr. Stewart on discharge follow-up 3. Condition on discharge, stable and improved. 4. Diet: regular diet 5. Activities: resume normal activities 6. Follow-Up: 1. PCP 2. 7. Medications at the Time of Discharge: Home Medications Medication Instructions Recorded Confirmed Type Glucosa Machado 2Kcl/Chondroitin Machado 1 each PO DAILY 05/20/11 07/15/17 History [Glucosamine & Chondroitin Cap] Tadalafil [Cialis] 1 tab PO DAILY PRN tab 03/11/14 07/15/17 History Pantoprazole Sodium [Protonix] 40 mg PO QD #90 tablet 12/13/16 07/15/17 Clinic Simvastatin 1 tab PO DAILY #90 tab 12/13/16 07/15/17 Clinic Ascorbic Acid [Vitamin C] 2 tab PO QD tab 02/10/17 07/15/17 History Calcium Carbonate [Calcium] 1 tab PO QD tab 02/10/17 07/15/17 History Sildenafil Citrate [Viagra] Sample #4 04/07/17 Clinic Levocetirizine Dihydrochloride 5 mg PO DAILY #90 tab 04/30/17 07/15/17 Clinic [Xyzal] Hydrocodone/Acetaminophen 1 tab PO Q6-8H #60 tab 06/10/17 07/15/17 Clinic [Hydrocodon-Acetaminoph 7.5-325] Hydrocodone/Acetaminophen 1 - 2 tab PO Q4-6H #60 tab 07/03/17 07/15/17 Clinic [Hydrocodon-Acetaminoph 7.5-325] HYDROcodone/APAP 7.5/325 Tab 1 - 2 tab PO Q4H PRN #50 tab 07/17/17 Rx [Derry 7.5/325 Tab] 8. Time, care, counseling and coordination of care for this discharge is greater than 30 minutes. Exam - Vitals Vital Signs: Vital Signs Temperature 99.3 F Temperature Source Temporal Artery Scan Pulse Rate [Apical] 75 Pulse Rate [Pulse Oximeter] 79 Pulse Rate 58 Respiratory Rate 18 Blood Pressure [Right Arm] 135/66 Blood Pressure 132/93 Pulse Ox 97 Oxygen Flow Rate 2 Oxygen Delivery Method Room Air Height 6 ft 1 in Weight 103.51 kg Patient Problems - Patient Problem List (1) Hip replacement planned Current Visit: Yes Status: Acute (2) GERD (gastroesophageal reflux disease) Current Visit: Yes Status: Chronic (3) Hypercholesteremia Current Visit: Yes Status: Chronic
[2017-07-17 13:08] VITALS: RESP 16; TEMP 98.4
--- NOTE | 2017-07-17 13:15 | ORTHO.PROG ---
Last Taken Vital Signs: Vital Signs - Last Taken Temperature 98.4 F 07/17/17 13:00 Pulse Rate 71 07/17/17 13:00 Respiratory Rate 16 07/17/17 13:00 Blood Pressure 141/65 07/17/17 13:00 Pulse Ox 95 07/17/17 13:00 Subjective: Patient doing well this morning pain is well controlled on oral medication Objective: Suction dressing in place working, mild swelling to the operative site region motor and sensory exam is nonfocal. Good pulses brisk refill. No calf, popliteal, adductor hiatus or lower Thigh Pain. Laboratory Results 07/17/17 Range/Units 04:10 WBC 10.47 (4.8-10.8) 10^3/uL RBC 3.60 L (4.70-6.10) 10^6/uL Hgb 12.0 L (14.0-18.0) g/dL Hct 34.8 L (42.0-52.0) % MCV 96.7 H (80-90) FL MCH 33.3 H (27-31) PG MCHC 34.5 (33-37) g/dL RDW Std Deviation 43.2 (39-50) fL RDW Coeff of Elmer 12.7 (11.5-14.5) % Plt Count 313 (140-350) 10*3/uL MPV 10.0 (7.4-12.2) FL Sodium 136 (135-145) meq/L Potassium 3.8 (3.8-5.2) meq/L Chloride 105 (98-112) meq/L Carbon Dioxide 24 (23-33) meq/L Anion Gap 7 (5-20) BUN 13 (7-22) mg/dL Creatinine 0.8 (0.70-1.50) mg/dL Estimated GFR > 60 (>60 ml/min/1.73m(2)) BUN/Creatinine Ratio 16.25 (6-20) Glucose 97 (78-110) mg/dL Calculated Osmolality 281.0 (267-292) mOsm/kg Calcium 8.9 (8.7-10.7) mg/dL Vital Signs (24 hrs) Temp Pulse Pulse Resp BP Pulse Ox 07/17/17 13:00 98.4 F 71 16 141/65 95 07/17/17 07:00 75 79 07/17/17 06:55 99.3 F 79 18 135/66 97 07/17/17 04:11 98.4 F 85 18 151/75 95 07/17/17 00:05 97.9 F 68 20 119/49 97 07/16/17 19:58 98.0 F 76 20 153/70 93 07/16/17 17:06 99.8 F H 72 20 133/69 96 Assessment: Right anterior total hip replacement Plan: Patient seems to be doing well, had low-grade fever last PM but asymptomatic and the tissues looked healthy. We will continue with oral pain medication look at possible discharge later today. We have given the patient a Silverlon dressing that he will apply once the suction drain stops working. Keep clean and dry. Begin physical therapy in approximately a week. Remove gregg at around 10 days to 2 weeks postoperatively.
== END 2017-07-17 15:25 | disposition home or self-care (01) | DRG 470 ==
LOC: OPS 05:55 → MED/SURG 12:57
PROVIDERS: ADMIT Orthopaedic Surgery; ATTEND Orthopaedic Surgery
PROC: 0SR9039 Replacement of Right Hip Joint with Ceramic Synthetic Substitute, Cemented, Open Approach (ICD-10-PCS; principal; 2017-07-15 08:00)
DX: M12.551 Traumatic arthropathy, right hip (principal); K21.9 Gastro-esophageal reflux disease without esophagitis; E78.00 Pure hypercholesterolemia, unspecified; T14.90 Injury, unspecified; W30.8 Contact with other specified agricultural machinery
CPT/HCPCS: 36415; 73502; 76001; 80048; 80053; 81001; 83735; 84443; 85025; 85027; 86850; 86870; 86900; 86901; 94150; 94640; 94761; 97110; 97161; 97165; 97530; 97535; A4216; J0690; J1100; J1170; J1580; J1644; J1885; J2250; J2270; J2405; J3010; J7030; J7040; J7050; J7120; J7620; Q0163; S0020

== ENCOUNTER 2019-04-28 19:29 | Observation (INO) ==
[2019-04-28] MEDS ORDERED: Sodium Chloride 0.9% 500 ML PRIMARY IV ONE (19:50)
[2019-04-28 20:01] LABS: BASOPHILS # (AUTO) 0.02 10*3/UL; BASOPHILS % (AUTO) 0.4 % (0-1); EOSINOPHILS # (AUTO) 0.09 10*3/UL; EOSINOPHILS % (AUTO) 1.6 % (0-8); Hematocrit [HCT] 44.6 % (42.0-52.0); Hemoglobin [HGB] 16.1 g/dL (14.0-18.0); MEAN CORPUSCULAR HEMOGLOBIN 35.5 PG (27-31); MEAN CORPUSCULAR HGB CONC 36.1 g/dL (33-37); MEAN CORPUSCULAR VOLUME 98.2 FL (80-90); MEAN PLATELET VOLUME 8.9 FL (7.4-12.2); MONOCYTES # (AUTO) 0.43 10*3/UL (0.3-0.8); MONOCYTES % (AUTO) 7.7 % (5-15); NEUTROPHILS # (AUTO) 3.75 10*3/UL; NEUTROPHILS % (AUTO) 66.9 % (50-80); PLATELET MORPHOLOGY COMMENT NORMAL MORPHOLOGY (NORM); RBC MORPHOLOGY COMMENT NORMAL MORPHOLOGY (NORM); RED BLOOD COUNT 4.54 10^6/uL (4.70-6.10); WBC MORPHOLOGY COMMENT NORMAL MORPHOLOGY (NORM)
--- NOTE | 2019-04-28 20:07 | DI ---
CT HEAD SCAN WITHOUT IV CONTRAST, 04/28/2019 7:31 PM : Clinical History: Stroke symptoms. Previous Exam: None at this facility. Technique: Scanned from the foramen magnum to vertex without IV contrast. Sagittal and coronal reform atted images generated. Contrast Volume: None. 4th Ventricle: Normal. 3rd Ventricle: Normal. Lateral Ventricles: Normal. Sella: Normal size and normal pituitary gland. Cerebrum: No evidence of an acute hemorrhagic or bland infarct. Multiple punctate periventricular whi te matter lucencies bilaterally extend into the watershed territory, consistent with small vessel isc hemic disease. This amount of ischemic disease is appropriate for the patient's age. Cerebellum: Normal. No cerebellopontine angle mass. Normal cerebellar tonsillar position. Brainstem: Normal. Atrophy: Mild cerebral atrophy. Extracerebral Mantles/Midline Shift: No extracerebral mantle or dural lesion. No midline shift. Sinuses: Normal. Skull: Intact. READIN. No evidence of an acute hemorrhagic or bland infarct. 2. Small vessel ischemic disease appropriate for the age of the patient. 3. Mild cerebral atrophy.
[2019-04-28 20:12] LABS: BLOOD UREA NITROGEN 10 mg/dL (7-22); BUN/CREATININE RATIO 11.11 (6-20); SERUM ALBUMIN 4.5 g/dL (3.5-4.8)
--- NOTE | 2019-04-28 20:18 | EKG ---
[address] [address] Measurements Intervals [place] Rate: 64 P: 42 KS: 199 QRS: 13 QRSD: 96 T: 45 QT: 390 QTc: 399 Interpretive Statements SINUS RHYTHM No previous ECG available for comparison Electronically Signed On 04-29-19 09:14:25 MDT by Elier Bull [email or web address]
--- NOTE | 2019-04-28 20:20 | PDOC ---
Neuro Symptoms / Deficit HPI - General Chief Complaint: Neurological Complaints Stated Complaint: s/s of stroke Date Seen by Provider: 04/28/19 Time Seen by Provider: 20:00 Source: POSITIVE: Patient, Spouse Exam Limitations: POSITIVE: No limitations Nurse's Notes Reviewed & Considered: Yes - History of Present Illness Initial Comments: Patient presents to the emergency room with his family for evaluation of weakness and falls. Family states last known well was approximately noon. Patient came back into house and noted the patient was not acting right. She states that he was having difficulty counting and had signs of recent falls. Patient complained to her hip and back pain. Family noted the patient had been listing towards the left and was holding onto the aldana. However, family states that they did not see a definitive weakness on patient's left side. reports patient had difficulties with counting and some memory loss concerning prior events of today. - Patient Home Medications Home Medications: Home Medications Calcium Carbonate [Calcium] 1 tab PO QD tab 02/10/17 RX: Ascorbic Acid [Vitamin C] 2 tab PO QD tab 02/10/17 albuterol sulfate HFA 90 mcg/actuation aerosol inhaler 2 puff INH Q4-6H PRN #18 g 10/21/18 levocetirizine 5 mg tablet See Rx Instructions .ROUTE .COMPLEX #90 tablet 12/21/18 simvastatin 10 mg tablet 10 mg PO DAILY #90 tab 03/22/19 pantoprazole 40 mg tablet,delayed release 40 mg PO QDAY #90 tab 04/27/19 - Patient Allergies Allergies/Adverse Reactions: Allergies Allergy/AdvReac Type Severity Reaction Status Date / Time No Known Allergies Allergy Verified 04/29/19 06:56 Past Medical History - heen HEENT History: Hard of Hearing Additional HEENT History: pt has hearing aids- not currently wearing. pt wears glasses Cardiovascular History: Hyperlipidemia Respiratory History: Sleep Apnea, Other (please comment) Additional Respiratory History: VERY SENSATIVE WHEN SICK TURNS INTO BRONCHITIS 2015/Reactive Airway Gastrointestinal History: GERD Additional Gastrointestinal History: DYSPHAGIA Genitourinary History: Denies History Endocrine History: Denies History Musculoskeletal History: Arthritis Prosthesis or Implant: Yes (Right Hip) Additional Musculoskeletal History: Degeneritive Disc in neck Neurological History: Denies History Blood Disorders: Other (please comment) Additional Blood Disorders History: ELEVATED FERRITIN/ FREQUENT BLOOD DONATIONS DONE Psychiatric History: Denies History History of Sexually Transmitted Diseases: No Cancer History: Denies History In Past Year Been Physically Harmed or Verbally Threatened: No History of MDRO: No History of Other Communicable Diseases: No Tobacco Use: Never Smoker Alcohol Use: Occasionally In the Past 12 Months, Have Used or Abuse Any Substance: None Previous Surgical History: Yes Type / Date of Surgery: EGD/ COLONOSCOPY X 2/ F.B REMOVAL FROM LEFT HAND /Bilat CATARACT REMOVAL/R GUY/ Anesthesia Reactions: No Malignant Hyperthermia: No Significant Family History: Cancer Past Medical History Reviewed: Reviewed - No Changes ROS - Limitations ROS Limitations: No Limitations Constitution: REPORTS: Weakness Respiratory: REPORTS: Denies Resp Symptoms Neurological: REPORTS: Confusion, Other (Patient was reportedly having trouble with word selection and counting) Gastrointestinal: REPORTS: Denies GI Symptoms Musculoskeletal: REPORTS: Denies MS Symptoms Genitourinary: REPORTS: Denies Symptoms Neuro Symptoms / Deficit Exam - General Appearance General Appearance: POSITIVE: No Acute Distress, Alert - HEENT HEENT: POSITIVE: Head Inspection Nml, Eyes Inspection Nml, Ears Inspection Nml - Pupil Size Pupil Size: 2 mm: Bilateral - Neuro / Psych Higher Functions: POSITIVE: Normal Speech, Appropriate Mood, Appropriate Affect Cranial Nerves: POSITIVE: Normal As Tested Cerebellar: POSITIVE: Normal As Tested Peripheral Exam: POSITIVE: Sensation Normal, Motor Normal, Other (Patient walks without assistance but does have slight limp.) - Neck Neck: POSITIVE: Supple - Respiratory Respiratory: POSITIVE: No Respiratory Distress, Breath Sounds Normal - Cardiovascular Cardiovascular: POSITIVE: Regular Rate & Rhythm, Heart Sounds Normal - Skin Skin: POSITIVE: Intact, Dry Neuro Symptom/Deficit Progress - Results Reviewed by me Xrays/CTs/US Reviewed by me: Yes Lab Results Reviewed by Me: Yes CBC and BMP: 04/28/19 19:54 04/29/19 04:15 Lab Results:: Laboratory Results 04/28/19 04/28/19 04/28/19 19:48 19:54 19:54 WBC 5.60 RBC 4.54 L Hgb 16.1 Hct 44.6 MCV 98.2 H MCH 35.5 H MCHC 36.1 RDW Std Deviation 44.7 RDW Coeff of Elmer 12.7 Plt Count 326 MPV 8.9 Immature Gran % (Auto) 0.2 Neut % (Auto) 66.9 Lymph % (Auto) 23.2 [place] % (Auto) 7.7 Eos % (Auto) 1.6 Baso % (Auto) 0.4 Immature Gran # (Auto) 0.01 Neut # (Auto) 3.75 Lymph # (Auto) 1.30 [place] # (Auto) 0.43 Eos # (Auto) 0.09 Baso # (Auto) 0.02 WBC Morphology Comment Normal morphology Plt Morphology Comment Normal morphology RBC Morph Comment Normal morphology PT 11.2 INR 0.97 Sodium Potassium Chloride Carbon Dioxide Anion Gap BUN Creatinine Estimated GFR BUN/Creatinine Ratio Glucose Calculated Osmolality Lactic Acid Calcium Total Bilirubin AST ALT Alkaline Phosphatase Total Creatine Kinase 123 Troponin I Total Protein Albumin Globulin Albumin/Globulin Ratio 04/28/19 04/28/19 04/28/19 19:54 19:54 19:54 WBC RBC Hgb Hct MCV MCH MCHC RDW Std Deviation RDW Coeff of Elmer Plt Count MPV Immature Gran % (Auto) Neut % (Auto) Lymph % (Auto) [place] % (Auto) Eos % (Auto) Baso % (Auto) Immature Gran # (Auto) Neut # (Auto) Lymph # (Auto) [place] # (Auto) Eos # (Auto) Baso # (Auto) WBC Morphology Comment Plt Morphology Comment RBC Morph Comment PT INR Sodium 146 H Potassium 4.0 Chloride 109 Carbon Dioxide 22 L Anion Gap 15 BUN 10 Creatinine 0.9 Estimated GFR > 60 BUN/Creatinine Ratio 11.11 Glucose 106 Calculated Osmolality 300.0 H Lactic Acid 1.5 Calcium 9.5 Total Bilirubin 1.1 AST 33 ALT 27 Alkaline Phosphatase 99 Total Creatine Kinase Troponin I < 0.012 Total Protein 7.5 Albumin 4.5 Globulin 3.0 Albumin/Globulin Ratio 1.50 EKG Interpreted/Reviewed By Me:: Yes (64 sinus no STEMI) EKG Interpretation:: POSITIVE: Normal Sinus Rhythm, Normal Rate - Patient's Progress MDM / ED Course: Patient relates without assistance. I see no deficit at this time. Discussed r esults with the family will seek admission. Spoke with who will admit patient. CVA/Syncope Quality Measure Initiative: POSITIVE: t-PA Considered (NIH 0) Patient Care Time - Estimated PCT Patient Care Time (In Minutes): 15 Vital Signs - VS Reviewed Vital Signs Reviewed: Yes Discharge Clinical Impression: Falls, Weakness, TIA (transient ischemic attack) Condition: Fair Date Decision to Admit to Inpatient: 04/28/19 Time Decision to Admit to Inpatient: 23:00
[2019-04-28 21:24] LABS: BILIRUBIN,URINE NEGATIVE (NEG); CLARITY,URINE CLEAR (CLEAR); COLOR,URINE YELLOW (Y); GLUCOSE, URINE (UA) NEGATIVE (NEG); OCCULT BLOOD,URINE Trace (NEG); PROTEIN,URINE NEGATIVE (NEG); URINE SAMPLE TYPE VOIDED SPECIMEN; UROBILINOGEN,URINE 0.2 EU/dL (0.2)
--- NOTE | 2019-04-28 21:29 | DI ---
PA /LATERAL CHEST, 04/28/2019 7:48 PM : Clinical History: Confusion. Falls. Previous Exam: None at this facility. Soft Tissues: No acute soft tissue abnormality. Bones: Normal. No fractures noted. Heart: Normal heart size. Lungs: No infiltrates. Effusion(s): None. Mediastinum: Normal mediastinum. Nodules: No pulmonary nodules. Reading: Normal chest x-ray.
[2019-04-28] MEDS ORDERED: DIPH,PERTUSS,TET(ADACEL) VAC/PF 0.5 ML (Tdap) IM ONE (21:53)
--- NOTE | 2019-04-28 23:02 | PDOC ---
HPI - History of Present Illness Date of Service: 04/28/19 Time of Service: 22:30 Chief Complaint: Transient problem with balance and slurred speech today History of Present Illness: This is a 68 years old male with medical history significant for history of GERD, history of hypercholesterolemia and seasonal allergies who was brought to the hospital for evaluation because of problem with balance and slurred speech today. Family reported that the patient was doing okay this morning and [place] and usually that it doesn't take long. it took longer than usual and then when he came back home they noticed that she had problem with his balance, had slurred speech, he had urinary incontinence, she helped him to go to shower he was holding onto aldana. After that they brought him to the hospital. He was given fluids and things started to improve. The patient himself reported only the balance issues. He did not notice problem with his speech, or weakness in one side more than the other. He did say that he had a gap in his memory in terms of the some of the events of today. Now he feels fine . He denied chest pain, shortness of breath, palpitation. No blurred vision. Past Medical History Medical History: 1. Hypercholesterolemia. 2. History of GERD. 3. History of seasonal allergies. 4. History of sleep apnea however he's not on CPAP or oxygen Surgical History: 1. History of right hip replacement. 2. History of esophageal dilation Pertinent Family History: Grandfather had a stroke Past Social History: Doesn't smoke, doesn't drink no drugs. Tobacco Use: Never Smoker In the Past 12 Months, Have Used or Abuse Any of the Following Substance: None Medication / Allergies Home Medications: Home Medications Medication Instructions Recorded Confirmed Ascorbic Acid [Vitamin C] 2 tab PO QD tab 02/10/17 04/28/19 Calcium Carbonate [Calcium] 1 tab PO QD tab 02/10/17 04/28/19 albuterol sulfate HFA 90 2 puff INH Q4-6H PRN #18 g 10/21/18 04/28/19 mcg/actuation aerosol inhaler levocetirizine 5 mg tablet See Rx Instructions .ROUTE 12/21/18 04/28/19 .COMPLEX #90 tablet simvastatin 10 mg tablet 10 mg PO DAILY #90 tab 03/22/19 04/28/19 pantoprazole 40 mg tablet,delayed 40 mg PO QDAY #90 tab 04/27/19 04/28/19 release Allergies/Adverse Reactions: Allergies Allergy/AdvReac Type Severity Reaction Status Date / Time No Known Allergies Allergy Verified 04/29/19 06:56 Review of Systems - Review of Systems All Systems: Reviewed & No Additional Complaints Except as Stated Exam - Vitals Vital Signs: Vital Signs Temperature 98.0 F Temperature Source Oral Pulse Rate [Pulse Oximeter] 80 Pulse Rate 83 Respiratory Rate 20 Blood Pressure [Right Arm] 118/89 Blood Pressure 149/80 Pulse Ox 92 Oxygen Delivery Method Room Air Height 6 ft 1 in Weight 236 lb 8 oz - General General Appearance: No Acute Distress, Cooperative - Head Head Exam: Normal Inspection - Eye Eye Exam: POSITIVE: Normal Appearance - ENT ENT Exam: POSITIVE: Normal Exam - Neck Neck Exam: Normal Inspection - Respiratory Respiratory Exam: POSITIVE: Clear to Auscultation - Bilaterally - Cardiovascular Cardiovascular Exam: POSITIVE: RRR - GI/Abdominal GI/Abdominal Exam: POSITIVE: Normal Bowel Sounds, Non Tender, Non Distended, Soft, No Organomegaly - Rectal Rectal Exam: POSITIVE: Deferred - External Exam: POSITIVE: Deferred - Extremities Extremities Exam: POSITIVE: Normal Inspection - Back Back Exam: POSITIVE: Normal Inspection - Neurological Neurological Exam: POSITIVE: Alert, Oriented x 3, CN II-XII Intact, No Facial Droop, Speech Intact / Clear, Moves All Extremities Equally - Psychiatric Psychiatric Exam: POSITIVE: Normal Affect - Integumentary Integumentary Exam: POSITIVE: Normal Color Results - Labs CBC and BMP: 04/28/19 19:54 04/29/19 04:15 - EKG Data EKG Interpretation: Normal EKG - Imaging Status: Report Reviewed by Me (CT showed evidence of small vessel disease, muscular atrophy Chest x-ray was normal) Assessment and Plan - Patient Problems (1) TIA (transient ischemic attack) Current Visit: Yes Status: Acute Comment: symptoms are suggestive of transient ischemic attack. Things seem to be resolved. I think will watch him overnight will order an MRI MRA of his brain tomorrow. We'll do ultrasound of his carotids. Will puts him on telemetry. He Received aspirin continue with aspirin. Code(s): G45.9 - Transient cerebral ischemic attack, unspecified (2) Hypercholesteremia Current Visit: No Status: Chronic Comment: Same med Code(s): E78.00 - Pure hypercholesterolemia, unspecified
[2019-04-28] MEDS ORDERED: LIDOCAINE W/ SODIUM BICARB 0.5 ML SYR SUBD PRN (23:07)
[2019-04-28] MEDS ORDERED: Simvastatin Tab 10 MG TAB PO SCH (23:21)
[2019-04-28] MEDS ORDERED: Lactated Ringers 1,000 ML PRIMARY IV SCH (23:30)
[2019-04-29] MEDS: PANTOPRAZOLE 40 MG TABLET PO SCH ×3 (00:46→07:42)
[2019-04-29 05:24] LABS: BLOOD UREA NITROGEN 11 mg/dL (7-22); BUN/CREATININE RATIO 13.75 (6-20)
[2019-04-29] MEDS ORDERED: ASPIRIN 325 MG TABLET PO SCH (09:00)
[2019-04-29 12:39] VITALS: BP 165/89; TEMP 97.6
[2019-04-29 12:41] VITALS: RESP 16
[2019-04-29 13:43] VITALS: O2SAT 90
--- NOTE | 2019-04-29 13:55 | DI ---
DUPLEX COLOR DOPPLER CAROTID ULTRASOUND, 04/29/2019 7:00 AM: Clinical History: Transient problem with balance. Previous Exam: None at this facility. Technique: 2D real time imaging supplemented with duplex color doppler ultrasound imaging. Right Common Carotid Artery: 2-D Real Time Imaging: Normal. Peak Systolic Velocity: 80 cm/sec. Diameter Stenosis: 0-49% stenosis. Right Internal Carotic Artery: 2-D Real Time Imaging: Normal. Peak Systolic Velocity: 112 cm/sec. Diameter Stenosis: 0-49% stenosis. Right External Carotid Artery: 2-D Real Time Imaging: Minimal noncalcified plaque at the origin. Peak Systolic Velocity: 122 cm/sec. Diameter Stenosis: 0-49% stenosis. Left Common Carotid Artery: 2-D Real Time Imaging: Normal. Peak Systolic Velocity: 97 cm/sec. Diameter Stenosis: 0-49% stenosis. Left Internal Carotic Artery: 2-D Real Time Imaging: Normal. Peak Systolic Velocity: 90 cm/sec. Diameter Stenosis: 0-49% stenosis. Left External Carotid Artery: 2-D Real Time Imaging: Normal. Peak Systolic Velocity: 136 cm/sec. Diameter Stenosis: 50-74% stenosis. Right Vertebral Artery: Flow Direction: Antegrade flow. Peak Systolic Velocity: 84 cm/sec. Diameter Stenosis: 0-49% stenosis. Left Vertebral Artery: Flow Direction: Antegrade flow. Peak Systolic Velocity: 54 cm/sec. Diameter Stenosis: 0-49% stenosis. Readin. There is no hemodynamically significant stenosis of either carotid system. 2. There is antegrade flow through both vertebral arteries. Cardiac rhythm is regular.
--- NOTE | 2019-04-29 15:24 | DCSUMMARY ---
Hospitalization Summary Admit Date: 04/28/2019 Discharge Date: 04/29/19 Hospital Course: Discharge diagnoses 1. Probable TIA 2. History of hypercholesterolemia 3. History of GERD 4. History of seasonal allergies 5. History of sleep apnea but is not on oxygen or CPAP Hospital course This is a 68 years old male with medical history significant for history of GERD, history of hypercholesterolemia and seasonal allergies who was brought to the hospital for evaluation because of problem with balance and slurred speech on the day of admission. Apparently he was doing okay the morning of admission but [place] and usually the ride doesn't take long however the day of admission it was longer than usual. after he came back home it was noted that he had a problem with his balance, slurred speech, had urinary incontinence, he was helped to go to the shower and he was holding onto the aldana. After they brought him to the ER he was given some fluid and he started to improve. The patient himself reported the only problem was his balance/ equilibrium. He did not notice problem with his speech, no weakness on one side more than the other. But he did report there was a gap in his memory according to him of some of the events of the day of admission. He had a CT of the head which was negative for bleeding, chest x-ray was negative. He was kept overnight. We did ultrasound of carotid they were negative. The suspicion was that he had a transient ischemia as a reason for his presentation we were thinking ordering MRI and MRA however the machine broke and we can not perform those tests. It's not clear when the machine will be fixed so since he was neurologically intact and he recovered without deficits we thought that he could be discharged home. we put him on aspirin and follow-up with his primary and need MRI of his brain and MRA once the machine is fixed. if There is evidence of for cerebral vascular accident he probably Also need an echocardiogram. I think he probably need also to repeat the oxygen saturation at night in case he need to be on oxygen at night. Discharge instruction Diet regular Activity as tolerated Medications Current Medication(s) Medication Instructions Recorded Confirmed Type simvastatin 10 mg tablet 10 mg PO DAILY #90 tab 03/22/19 04/28/19 Rx pantoprazole 40 mg tablet,delayed 40 mg PO QDAY #90 tab 04/27/19 04/28/19 Rx release Aspirin 325 mg PO DAILY tab 04/29/19 Rx Glucosamine/D3/Boswellia Sirisha 1 tab PO DAILY 04/29/19 04/29/19 History [Osteo Bi-Flex Tablet] Levocetirizine Dihydrochloride 1 tab PO DAILY 04/29/19 04/29/19 History [Xyzal] Mv-Mn/Folic Acid/Lutein/Veb329 1 tab PO DAILY 04/29/19 04/29/19 History [Mens Multivit High Potency Tab] Follow-up with the PCP 1-2 weeks, follow-up to have MRI of the brain Condition at discharge was stable for discharge Exam - Vitals Vital Signs: Vital Signs Temperature 97.6 F Temperature Source Temporal Artery Scan Pulse Rate [Pulse Oximeter] 95 Pulse Rate [right third finger 101 ] Pulse Rate 94 Respiratory Rate 16 Blood Pressure [Left Arm] 156/91 Blood Pressure [Right Arm] 165/89 Blood Pressure 149/80 Pulse Ox [right third finger] 90 Pulse Ox 94 Oxygen Flow Rate [right third 2 finger] Oxygen Flow Rate 2 Oxygen Delivery Method [right Room Air third finger] Oxygen Delivery Method Room Air Height 6 ft 1 in Weight 240 lb 12.8 oz - General General Appearance: No Acute Distress, Cooperative - Head Head Exam: Normal Inspection - Eye Eye Exam: POSITIVE: Normal Appearance - ENT ENT Exam: POSITIVE: Normal Exam - Neck Neck Exam: Normal Inspection - Respiratory Respiratory Exam: POSITIVE: Clear to Auscultation - Bilaterally - Cardiovascular Cardiovascular Exam: POSITIVE: RRR - GI/Abdominal GI/Abdominal Exam: POSITIVE: Normal Bowel Sounds, Non Tender, Non Distended, Soft, No Organomegaly - Rectal Rectal Exam: POSITIVE: Deferred - External Exam: POSITIVE: Deferred - Extremities Extremities Exam: POSITIVE: Normal Inspection - Back Back Exam: POSITIVE: Normal Inspection - Neurological Neurological Exam: POSITIVE: Alert, Oriented x 3, CN II-XII Intact, No Facial Droop, Speech Intact / Clear, Moves All Extremities Equally - Psychiatric Psychiatric Exam: POSITIVE: Normal Affect - Integumentary Integumentary Exam: POSITIVE: Normal Color Patient Problems - Patient Problem List (1) TIA (transient ischemic attack) Status: Acute Code(s): G45.9 - Transient cerebral ischemic attack, unspecified Category: Medical (2) Hypercholesteremia Status: Chronic Code(s): E78.00 - Pure hypercholesterolemia, unspecified Category: Medical
--- NOTE | 2019-04-30 11:33 | OTI REPORT ---
Thank you for the referral of Boom De Souza. He was seen on 04/29/19 for an occupational therapy inpatient evaluation status post TIA. SUBJECTIVE: The patient is a 68-year-old male who reports that he did have some difficulty yesterday related to slurred speech, loss of balance, and there is a time of the day where he does not recall what happened. The patient was also referred for a swallow evaluation; however, upon discussion with nursing, they requested that the swallow evaluation not be performed because the patient was doing very well with eating at this time. The patient reports no pain; just some generalized tiredness. He reports that his thoughts are clear and he is having no difficulty with balance or moving. The patient has no concerns and would like to go home this afternoon. PAST MEDICAL HISTORY: Past medical history can be found in the patient's medical record. OBJECTIVE FINDINGS: Bed mobility: The patient demonstrated the ability to move from supine to sitting edge of bed independently. Range of motion: The patient demonstrated full range of motion in the shoulders for abduction/flexion, elbows for flexion/extension, wrists for flexion/extension, and hands. Strength: The patient demonstrated strength of 5/5 for the shoulders, elbows, hands, and wrists bilaterally. Sensation: The patient reported intact sensation in bilateral sides of his face as well as in his hands and arms with no reports of numbness or tingling. The patient demonstrated good tongue movement laterally and his swallow was intact at the time of OT evaluation. Transfers: The patient demonstrated the ability to complete a functional transfer from edge of bed independently with no use of adaptive equipment. Ambulation: The patient ambulated with PT around the nurse's station and performed stairs without any loss of balance or difficulty. Cognition: The patient demonstrated the ability to repeat a sentence that was spoken to him without any slurred speech. The patient was oriented to person/plate/date/reason for hospitalization/room number. Safety: The patient demonstrated good safety awareness. ASSESSMENT: Problems at this time are very limited. The patient is performing at baseline per his repot. His strength is within functional limits. Balance is good. Speech is intact with good oral motility. The patient may benefit from continued monitoring while he is in the hospital for any changes in speech, swallowing, or muscle weakness on one side. Nursing reports that they are doing an ultrasound of carotid arteries and are unable to do an MRI at this time; however, he may be referred out for that per patient report. TREATMENT PLAN: Patient will be discharged from occupational therapy services at this time with close monitoring per nursing request for additional assessments or concerns. INITIAL TREATMENT: Treatment today consisted of the initial evaluation only. ORALIA
--- NOTE | 2019-04-30 11:47 | PTI REPORT ---
Thank you for the referral of Boom De Souza. He was seen on 04/29/19 for an inpatient evaluation status post TIA. SUBJECTIVE: The patient is a 68-year-old male who was admitted to the hospital yesterday after experiencing temporary left sided weakness as well as memory loss. The patient states that [place] and cannot remember a time period of the afternoon. His family noted weakness on the left side so he was brought to the hospital and admitted. The patient lives in [place] with his [place]. The patient states that he has approximately three stairs to get into the house with railings on both sides. The patient has no history of falls and was not using an assistive device prior to being admitted. The patient has had a right total hip replacement in the past. PAST MEDICAL HISTORY: Past medical history can be found in the patient's medical record. OBJECTIVE FINDINGS: General observations: The patient was sitting edge of bed upon PT arrival. The patient was alert and oriented. The patient was able to sit edge of bed while physical therapy and occupational therapy asked questions and applied the gait belt. Transfers: The patient was able to perform a sit to stand transfer with contact guard assist x1 for safety. The patient was able to transfer from stand to sit with contact guard assist x1. Ambulation: The patient was able to ambulate 150 feet with contact guard assist x1 for safety. The patient was able to maintain good standing and walking balance. The patient was able to ascend and descend a full flight of stairs with contact guard assist x1 for safety. The patient ambulated back to the room. ASSESSMENT: The patient has a good prognosis for therapy. Physical Therapy Goals: To be met by discharge from inpatient: Patient will be able to transfer from bed to stand independently and safely and gain appropriate standing balance. Patient will be able to ambulate 150 feet independently in order to return home. Patient will be able to ascend and descend five stairs with bilateral railings in order to return home. TREATMENT PLAN: Patient has met all goals and will be discharged from therapy. INITIAL TREATMENT: Treatment today consisted of the initial evaluation followed by one unit of functional activity. Please see objective findings. Dictated by: DON Tenorio Supervised by: Karla Bullock, YULISSA MTDD
== END 2019-04-29 15:36 | disposition home or self-care (01) ==
LOC: ER 19:29 → MED/SURG 19:29
PROVIDERS: ADMIT Internal Medicine; ATTEND Internal Medicine